=== PATIENT | female | born 1995 | race Asian ===

== ENCOUNTER 2018-04-05 14:31 | Emergency (ER) | payer MEDICAID ==
[~2018-04-05] VITALS: Ht 154.9 cm; Wt 63.2 kg
[2018-04-05 14:51] VITALS: BP 132/82
[2018-04-05 17:56] LABS: BASOPHIL % 0.2 % (0-2); PLATELET COUNT 235 x10^3mcL (130-400); RED CELL DISTRIBUTION WIDTH 13.3 % (11.5-14.5)
== END 2018-04-05 19:15 | disposition home or self-care (01) ==
LOC: ED 14:31
PROVIDERS: Emergency Medicine
PROC: BY49ZZZ Ultrasonography of First Trimester, Single Fetus (ICD-10-PCS; principal; 2018-04-05)
DX: O20.0 Threatened abortion (principal); Z3A.01 Less than 8 weeks gestation of pregnancy
CPT/HCPCS: 36415

== ENCOUNTER 2018-04-12 04:00 | Emergency (ER) | payer MEDICAID ==
[~2018-04-12] VITALS: Ht 154.9 cm; Wt 62.6 kg
[2018-04-12 04:08] VITALS: Ht 154.9 cm; Wt 62.6 kg
[2018-04-12 04:42] LABS: BASOPHIL % 0.1 % (0-2); PLATELET COUNT 315 x10^3mcL (130-400); RED CELL DISTRIBUTION WIDTH 13.3 % (11.5-14.5)
[2018-04-12 04:52] LABS: CALCIUM 8.7 mg/dL (8.5-10.1); CARBON DIOXIDE 22.4 mmol/L (21-32); CHLORIDE SERUM 100 mmol/L (98-107); CREATININE SERUM 0.5 mg/dL (0.6-1.0); GFR1 > 60 mL/min; GLUCOSE SERUM 89 mg/dL (74-106); POTASSIUM SERUM 3.7 mmol/L (3.5-5.1); SODIUM SERUM 132 mmol/L (136-145)
[2018-04-12 04:56] LABS: ALBUMIN 3.6 g/dL (3.4-5.0); ALKALINE PHOSPHATASE 48 U/L (46-116); ALT/SGPT 23 U/L (14-59); AMYLASE 67 U/L (25-115); AST/SGOT 15 U/L (15-37); BILIRUBIN TOTAL 0.24 mg/dL (0.20-1.00); LIPASE 154 IU/L (73-393); TOTAL PROTEIN, SERUM 7.4 g/dL (6.4-8.2)
[2018-04-12 07:52] VITALS: BP 91/49
== END 2018-04-12 07:52 | disposition home or self-care (01) ==
LOC: ED 04:00
PROVIDERS: Emergency Medicine
DX: O26.891 Other specified pregnancy related conditions, first trimester (principal); R10.13 Epigastric pain; R10.11 Right upper quadrant pain; R11.2 Nausea with vomiting, unspecified; Z3A.08 8 weeks gestation of pregnancy
CPT/HCPCS: J2765; J3010; J7030; Q0092

== ENCOUNTER 2020-04-12 16:29 | Emergency (ER) | payer BC, MEDICAID ==
[~2020-04-12] VITALS: Ht 144.8 cm; Wt 64.4 kg
[2020-04-12 16:35] VITALS: BP 116/81; Ht 144.8 cm; Wt 64.4 kg
== END 2020-04-12 17:06 | disposition home or self-care (01) ==
LOC: ED 16:29
DX: M25.571 Pain in right ankle and joints of right foot (principal); R22.41 Localized swelling, mass and lump, right lower limb

== ENCOUNTER 2020-04-18 12:50 | Emergency (ER) | payer BC, MEDICAID ==
[~2020-04-18] VITALS: Ht 152.4 cm; Wt 63.0 kg
[2020-04-18 13:00] VITALS: Ht 152.4 cm; Wt 63.0 kg
[2020-04-18 15:05] VITALS: BP 91/56
== END 2020-04-18 15:05 | disposition home or self-care (01) ==
LOC: ED 12:50
DX: M76.61 Achilles tendinitis, right leg (principal)
CPT/HCPCS: Q0092

== ENCOUNTER 2020-05-07 01:34 | Emergency (ER) | payer BC, MEDICAID ==
[~2020-05-07] VITALS: Ht 152.4 cm; Wt 64.4 kg
[2020-05-07 01:55] VITALS: Ht 152.4 cm; Wt 64.4 kg
[2020-05-07 02:44] VITALS: BP 126/72
== END 2020-05-07 02:44 | disposition home or self-care (01) ==
LOC: ED 01:34
DX: O9A.211 Injury, poisoning and certain other consequences of external causes complicating pregnancy, first trimester (principal); Z3A.12 12 weeks gestation of pregnancy

== ENCOUNTER 2020-05-25 22:41 | Emergency (ER) | payer BC, MEDICAID ==
[~2020-05-25] VITALS: Ht 152.4 cm; Wt 65.3 kg
[2020-05-26 02:29] VITALS: BP 118/79
== END 2020-05-26 02:21 | disposition home or self-care (01) ==
LOC: ED 22:41
DX: O36.8120 Decreased fetal movements, second trimester, not applicable or unspecified (principal); Z3A.16 16 weeks gestation of pregnancy
CPT/HCPCS: Q0092

== ENCOUNTER 2020-07-24 00:57 | Emergency (ER) | payer BC, MEDICAID ==
[~2020-07-24] VITALS: Ht 152.4 cm; Wt 69.9 kg
[2020-07-24 01:13] VITALS: Ht 152.4 cm; Wt 69.9 kg
[2020-07-24 02:00] VITALS: BP 118/65
== END 2020-07-24 02:00 | disposition home or self-care (01) ==
LOC: ED 00:57
DX: L73.9 Follicular disorder, unspecified (principal); L03.112 Cellulitis of left axilla

== ENCOUNTER 2020-11-03 18:03 | Emergency (ER) | payer MEDICAID ==
[~2020-11-03] VITALS: Ht 152.4 cm; Wt 70.3 kg
[2020-11-03 18:17] VITALS: Ht 152.4 cm; Wt 70.3 kg
[2020-11-03 19:12] LABS: BASOPHIL % 0.5 % (0.2-1.3); PLATELET COUNT 257 x10^3mcL (179-408); RED CELL DISTRIBUTION WIDTH 12.5 % (12.3-17.7)
[2020-11-03 21:41] VITALS: BP 130/93
== END 2020-11-03 21:41 | disposition home or self-care (01) ==
LOC: ED 18:03
PROVIDERS: Emergency Medicine
DX: O72.1 Other immediate postpartum hemorrhage (principal)